=== PATIENT | male | born 1940 | race Caucasian/White ===

== ENCOUNTER 2018-04-13 00:23 | Outpatient (CLI) | payer MEDICARE, BC ==
[2018-04-13 10:38] LABS: #Eosinphils 0.2 thou/uL (0.0-0.7); #Lymphocytes 1.3 thou/uL (1.20-3.40); #Monocytes 0.5 thou/uL (0.11-0.59); %Basophils 0.5 % (0.0-1.0); %Eosinophils 2.5 % (0.0-10.0); %Lymphocytes 15.6 % (21.0-51.0); %Monocytes 6.5 % (0.0-10.0); %Neutrophils 74.9 % (42.0-75.0); Hemoglobin 13.5 g/dL (14.0-18.0); Mean Corpuscular HGB CONC 32.9 g/dL (32.0-36.0); Mean Corpuscular Hemoglobin 30.5 pg (27.0-31.0); Mean Corpuscular Volume 92.6 fL (78.0-98.0); Mean Platelet Volume 9.3 fL (7.4-10.4); Platelet Count 154 thou/uL (130-400); RBC Distribution Width 12.1 % (11.5-14.5); Red Blood Cell (RBC) Count 4.44 mill/uL (4.70-6.10); White Blood Cell (WBC) Count 8.1 thou/uL (4.8-10.8)
[2018-04-13 10:45] LABS: INR-International Normal Ratio 1.1; PTT 46.8 SEC (22.9-36.1); Prothrombin Time 14.5 SEC (12.0-14.7)
[2018-04-13 11:15] LABS: ALT (SGPT) 25 U/L (8-55); AST (SGOT) 24 U/L (5-34); Albumin 4.2 g/dL (3.4-4.8); Alkaline Phosphatase 314 U/L (40-150); Anion Gap 14 mmol/L (10-20); BUN (Urea Nitrogen) 49 mg/dL (8.4-25.7); Bilirubin, Total 0.4 mg/dL (0.2-1.2); Calc. Creatinine Clearance 0 mL/min (70-130); Calcium 9.6 mg/dL (7.8-10.44); Carbon Dioxide 19 mmol/L (23-31); Cardiac Risk 5.4 (Less than 4.5); Chloride 108 mmol/L (98-107); Cholesterol 147 mg/dl (< 200 Desired); Estimated GFR-MDRD 40; Globulin 3.1 g/dL (2.4-3.5); Glucose 133 mg/dL (83-110); HDL Cholesterol 27 mg/dL (>60 Neg Risk); LDL Cholesterol, Calculated 71 mg/dL; Potassium 5.6 mmol/L (3.5-5.1); Protein, Total 7.3 g/dL (5.8-8.1); Sodium 135 mmol/L (136-145); Triglycerides 247 mg/dL (Less than 150)
== END 2018-04-13 00:24 | disposition home or self-care (01) ==
LOC: LABBT 00:23
PROVIDERS: ATTEND Internal Medicine Cardiovascular Disease
DX: Z01.812 Encounter for preprocedural laboratory examination (principal); R94.39 Abnormal result of other cardiovascular function study
CPT/HCPCS: 80053; 80061; 85025; 85610; 85730

== ENCOUNTER 2018-04-23 05:40 | Day surgery (SDC) | payer MEDICARE, BC ==
[2018-04-13 10:47] VITALS: BMI 29.2
[2018-04-23] MEDS ORDERED: Fentanyl 100 MCG/2 ML VIAL ONE (07:03)
[2018-04-23] MEDS ORDERED: Midazolam HCl 2 mg/2 ml Vial ONE (07:04)
[2018-04-23] MEDS ORDERED: Lidocaine 1% (PF) 30 ML VIAL ONE (07:08)
[2018-04-23 08:03] LABS: ALT (SGPT) 21 U/L (8-55); AST (SGOT) 28 U/L (5-34); Albumin 4.1 g/dL (3.4-4.8); Alkaline Phosphatase 294 U/L (40-150); Anion Gap 17 mmol/L (10-20); BUN (Urea Nitrogen) 44 mg/dL (8.4-25.7); Bilirubin, Total 0.5 mg/dL (0.2-1.2); Calc. Creatinine Clearance 49 mL/min (70-130); Calcium 9.8 mg/dL (7.8-10.44); Carbon Dioxide 19 mmol/L (23-31); Chloride 108 mmol/L (98-107); Estimated GFR-MDRD 37; Globulin 3.2 g/dL (2.4-3.5); Glucose 128 mg/dL (83-110); Potassium 5.8 mmol/L (3.5-5.1); Protein, Total 7.3 g/dL (5.8-8.1); Sodium 138 mmol/L (136-145)
== END 2018-04-23 08:32 | disposition home or self-care (01) ==
LOC: CCL 05:40
PROVIDERS: ATTEND Internal Medicine Cardiovascular Disease
DX: R94.30 Abnormal result of cardiovascular function study, unspecified (principal); I35.0 Nonrheumatic aortic (valve) stenosis; E11.9 Type 2 diabetes mellitus without complications; I10 Essential (primary) hypertension; Z87.891 Personal history of nicotine dependence; Z79.4 Long term (current) use of insulin; Z79.899 Other long term (current) drug therapy; Z88.2 Allergy status to sulfonamides; Z88.8 Allergy status to other drugs, medicaments and biological substances; Z53.8 Procedure and treatment not carried out for other reasons
CPT/HCPCS: 80053; J1644; J2001; J2250; J3010

== ENCOUNTER 2018-05-12 17:30 | Observation (INO) | payer MEDICARE, BC ==
[2018-05-12 18:24] VITALS: BMI 27.3
[2018-05-12 22:16] LABS: #Basophils 0.1 thou/uL (0.0-0.2); #Eosinphils 0.3 thou/uL (0.0-0.7); #Lymphocytes 1.5 thou/uL (1.20-3.40); #Monocytes 0.8 thou/uL (0.11-0.59); %Basophils 1.2 % (0.0-1.0); %Eosinophils 3.6 % (0.0-10.0); %Lymphocytes 19.2 % (21.0-51.0); %Monocytes 10.2 % (0.0-10.0); %Neutrophils 65.9 % (42.0-75.0); Hemoglobin 12.2 g/dL (14.0-18.0); Mean Corpuscular HGB CONC 32.7 g/dL (32.0-36.0); Mean Corpuscular Hemoglobin 30.3 pg (27.0-31.0); Mean Corpuscular Volume 92.5 fL (78.0-98.0); Platelet Count 137 thou/uL (130-400); RBC Distribution Width 11.9 % (11.5-14.5); Red Blood Cell (RBC) Count 4.03 mill/uL (4.70-6.10); White Blood Cell (WBC) Count 7.6 thou/uL (4.8-10.8)
[2018-05-12] MEDS: Sodium Chloride 0.9% 1,000 ML IV SCH (22:17)
[2018-05-12 22:35] LABS: ALT (SGPT) 20 U/L (8-55); AST (SGOT) 20 U/L (5-34); Albumin 3.9 g/dL (3.4-4.8); Alkaline Phosphatase 258 U/L (40-150); Anion Gap 13 mmol/L (10-20); BUN (Urea Nitrogen) 50 mg/dL (8.4-25.7); Bilirubin, Total 0.3 mg/dL (0.2-1.2); Calc. Creatinine Clearance 47 mL/min (70-130); Calcium 9.5 mg/dL (7.8-10.44); Carbon Dioxide 25 mmol/L (23-31); Chloride 105 mmol/L (98-107); Estimated GFR-MDRD 38; Globulin 3.1 g/dL (2.4-3.5); Glucose 171 mg/dL (83-110); Potassium 4.8 mmol/L (3.5-5.1); Sodium 138 mmol/L (136-145)
[2018-05-12] MEDS ORDERED: traMADol HCl 50 MG TAB PO PRN (23:44)
[2018-05-13] MEDS: Atenolol 25 MG TAB PO SCH (05:34)
[2018-05-13 06:17] LABS: Anion Gap 13 mmol/L (10-20); BUN (Urea Nitrogen) 45 mg/dL (8.4-25.7); Calc. Creatinine Clearance 55 mL/min (70-130); Calcium 9.3 mg/dL (7.8-10.44); Carbon Dioxide 21 mmol/L (23-31); Chloride 109 mmol/L (98-107); Estimated GFR-MDRD 45; Glucose 162 mg/dL (83-110); Potassium 5.1 mmol/L (3.5-5.1); Sodium 138 mmol/L (136-145)
[2018-05-13] MEDS ORDERED: Midazolam HCl 2 mg/2 ml Vial ONE (07:35)
[2018-05-13] MEDS ORDERED: Fentanyl 100 MCG/2 ML VIAL ONE (07:35)
[2018-05-13] MEDS ORDERED: Sodium Chloride 0.9% 1,000 ML IV SCH (08:45)
[2018-05-13] MEDS: glipiZIDE 10 MG TAB PO SCH ×2 (11:06→17:31)
[2018-05-13] MEDS: Furosemide 20 MG TAB PO SCH (11:07)
[2018-05-13] MEDS: metFORMIN 500 MG TAB PO SCH ×2 (11:07→20:15)
[2018-05-13] MEDS: Gabapentin 300 MG CAP PO SCH ×2 (11:07→20:15)
[2018-05-13] MEDS: Lisinopril 10 MG TAB PO SCH ×2 (11:07→20:15)
[2018-05-13] MEDS: Insulin Glargine 45 UNITS in Pre-Filled Syringe 1 EACH SC SCH (12:24)
[2018-05-13] MEDS: Sodium Chloride 0.9% 1,000 ML IV SCH (17:31)
--- NOTE | 2018-05-13 20:55 | HP ---
HISTORY OF PRESENT ILLNESS: The patient was admitted for hydration before heart catheterization. Please see my note from the outpatient setting for further details. Mr. Jaimes has no new complaints. He is only here for hydration. He denies any more chest pain at that time. He does have increased lower extremity swelling, erythema, warmth, and pain on both legs, which is something new. For past medical, past surgical, medications, and allergies, please see my previous note. I appended that note to this note with no changes. ASSESSMENT AND PLAN: 1. Chest pain. We will plan heart catheterization. As has already been consented about 2 weeks ago for the same procedure, this had to be canceled due to elevated creatinine. 2. Possible cellulitis. If the heart catheterization is unremarkable, we will start him on antibiotics. 3. Further recommendations per results of coronary angio. Job ID: [id number]
[2018-05-13] MEDS ORDERED: Doxycycline 100 MG in Syringe 0 ML IVPB SCH (21:00)
[2018-05-13] MEDS ORDERED: Rosuvastatin 20 MG TAB PO SCH (21:00)
[2018-05-14] MEDS: Insulin Glargine 45 UNITS in Pre-Filled Syringe 1 EACH SC SCH (08:27)
[2018-05-14] MEDS: Furosemide 20 MG TAB PO SCH (08:28)
[2018-05-14] MEDS: Atenolol 25 MG TAB PO SCH (08:28)
[2018-05-14] MEDS: Gabapentin 300 MG CAP PO SCH (08:28)
[2018-05-14] MEDS: Lisinopril 10 MG TAB PO SCH (08:28)
[2018-05-14] MEDS: metFORMIN 500 MG TAB PO SCH (08:28)
[2018-05-14] MEDS: glipiZIDE 10 MG TAB PO SCH (08:28)
[2018-05-14] MEDS: Sodium Chloride 0.9% 1,000 ML IV SCH (08:37)
[2018-05-14 12:43] VITALS: BP 146/72; TEMP 97.5
[2018-05-14] MEDS ORDERED: Doxycycline 100 MG CAP PO SCH (21:00)
[2018-05-15] MEDS ORDERED: Aspirin 81 mg Enteric Coated Tablet PO SCH (09:00)
== END 2018-05-14 12:47 | disposition home or self-care (01) ==
LOC: T4-B 17:50
PROVIDERS: ADMIT Internal Medicine Cardiovascular Disease; ATTEND Internal Medicine Cardiovascular Disease
DX: R07.9 Chest pain, unspecified (principal); Z88.8 Allergy status to other drugs, medicaments and biological substances; Z88.2 Allergy status to sulfonamides; Z88.1 Allergy status to other antibiotic agents; Z79.4 Long term (current) use of insulin; Z79.82 Long term (current) use of aspirin; Z79.899 Other long term (current) drug therapy
CPT/HCPCS: 80048; 80053; 82962 ×3; 85025; 92928; 93458; 96361 ×3; 96365; 96376; C1769; G0378; G0379; 36415; 36416; J1644; J1825; J2250; J3010; J7050

== ENCOUNTER 2018-09-17 08:04 | Outpatient (CLI) | payer MEDICARE, BC ==
--- NOTE | 2018-09-17 11:15 | RAD ---
LUMBAR SPINE 4 VIEWS: HISTORY: M48.062, lumbar stenosis with neurogenic claudication, history of prior surgery with back and bilater al leg pain. COMPARISON: 11/01/2015. FINDINGS: Multilevel disk-osteophytosis and significant facet arthrosis. No significant malalignment or abnorm al translation. Marked sclerotic changes in the right hemipelvis, evidence for Paget's disease. Sta ble appearance from 11/01/2015. IMPRESSION: Significant spondylosis. Heterogeneous Sclerosis and thickening of trabecula in the right hemipelvis , evidence for Paget's disease. No significant new process. POS: [facility]
--- NOTE | 2018-09-17 11:18 | MRI ---
Lumbar spine MRI with and without contrast: 09/17/2018 COMPARISON: 11/01/2015 HISTORY: Back pain and leg pain, chronic in nature, with lumbar radiculopathy and history of prior ba ck surgery TECHNIQUE: Multiplanar multisequence MR imaging of the lumbar spine is provided with and without cont rast FINDINGS: There is heterogeneity of the bone marrow signal in the region of the sacrum, right greater than left , as well as within the imaged portion of the right iliac bone. These findings are stable when compared to prior lumbar spine MRI performed the 11/01/2015 and are likely on the basis of Paget's dis ease when correlated with prior lumbar spine radiographs as well. There is new heterogeneous abnormal bone marrow signal intensity within the posterior aspect of the L 5 vertebral body to the right of midline extending into the right pedicle. This involves a portion of the L5 vertebral body measuring 2.2 cm in craniocaudal dimension. There is heterogeneous hypointen se T1 and T2 signal. There may be minimal internal patchy enhancement. Dedicated CT examination is advised to further evaluate the L5 vertebral body. Perhaps this could represent Paget's disease withi n the L5 vertebral body but further assessment is suggested to exclude a more aggressive abnormality. On the basis of 5 lumbar type vertebral bodies, the conus medullaris terminates at the L1 level. T12-L1: Intervertebral disc height and signal intensity is within normal limits. No significant centr al canal or neural foraminal stenosis. Right anterior osteophyte formation noted. L1-2: Mild bilateral facet hypertrophy. Intervertebral disc height and signal intensity within normal limits with no significant central canal or neural foraminal stenosis. L2-3: Disc space narrowing and disc desiccation with mild disc bulge causing mild central canal steno sis. Mild bilateral facet hypertrophy with mild right neural foraminal stenosis. Findings are similar when compared to the prior examination. L3-4: Bilateral facet hypertrophy and hypertrophy of the ligamentum flavum, slightly progressed since the prior exam. Disc space narrowing, disc desiccation, and mild disc bulge, stable. Stable mild central canal stenosis and stable mild right neural foraminal stenosis. L4-5: Prominent facet hypertrophy noted bilaterally. There is disc space narrowing and disc desiccati on with mild disc bulge. Moderate stable central canal stenosis. Moderate right neural foraminal stenosis, slightly worsened when compared to the prior examination. L5-S1: Disc space narrowing and disc desiccation. Mild stable central canal stenosis. Prominent bilat eral facet hypertrophy with moderate left and mild right neural foraminal stenosis, not significantly changed. There is a lobulated T2 hyperintense lesion within the anterior right renal midpole measuring 3.4 cm, likely representing a cyst, unchanged when compared to the prior examination. The postcontrast imaging demonstrates no abnormal enhancement involving the contents of the thecal sa c. IMPRESSION: Multilevel degenerative change noted within the lumbar spine as detailed above. There are findings within the sacrum and the right iliac wing which are most consistent with Paget's disease. There is new abnormal signal intensity within the L5 vertebral body which may be related to Paget's disease as well. However, full assessment of the pelvis and lumbar spine via CT is recommended. Please see above discussion.
--- NOTE | 2018-09-17 11:19 | MRI ---
THORACIC SPINE MRI WITHOUT CONTRAST: Date: 09/17/2018 COMPARISON: None. HISTORY: Ataxia. TECHNIQUE: Multiplanar multisequence MR imaging of the thoracic spine provided without contrast. FINDINGS: The sagittal STIR imaging demonstrates no focal area of osseous marrow edema. Edematous degenerative changes are noted within bilateral facet joints at C7-T1. There is no anterolisthesis or retrolisthesis seen within the thoracic spine. There is no significant central canal stenosis within the thoracic spine and no focal area of abnormal signal intensity is noted within the thoracic cord. Scattered areas of anterior osteophyte formation noted within the thoracic spine. There is no signifi cant neural foraminal stenosis on either side at any level within the thoracic spine. IMPRESSION: No significant central canal or neural foraminal stenosis within the thoracic spine. Transcribed Date/Time: 09/17/2018 11:56 AM
--- NOTE | 2018-09-17 11:25 | MRI ---
CERVICAL SPINE MRI WITHOUT CONTRAST: Date: 09/17/2018 COMPARISON: None. HISTORY: Ataxia, pain. TECHNIQUE: Multiplanar multisequence MR imaging of the cervical spine provided without contrast. FINDINGS: Sagittal STIR imaging demonstrates edematous degenerative change centered at the facet of C7-T1, righ t greater than left. There is moderate degenerative change at the atlantoaxial interspace. There is no significant anterolisthesis or retrolisthesis within the cervical spine. C2-3: There is disc space narrowing and disc desiccation with bilateral facet and uncovertebral osteo phyte formation, especially on the left. No central canal stenosis. Moderate left neural foraminal stenosis. No significant right neural foraminal stenosis. C3-4: There is disc space narrowing and disc desiccation with mild disc bulge effacing the ventral th ecal sac and leading to severe central canal stenosis. There is prominent bilateral facet and uncovertebral osteophyte formation, left greater than right, with severe bilateral neural foraminal s tenosis. C4-5: Disc space narrowing, disc desiccation, and disc bulge present with a small central disc protru daniel. There is associated moderate central canal stenosis. Bilateral facet and uncovertebral osteophyte formation noted, right greater than left, with severe right and moderate left neural l[place] inal stenosis. C5-6: There is disc space narrowing with degenerative endplate change, anterior osteophyte formation, and posterior disc osteophyte complex. This causes a mild degree of central canal stenosis. Bilateral facet and uncovertebral osteophyte formation noted, right greater than left, with moderate bilateral neural foraminal stenosis, left greater than right. C6-7: There is disc space narrowing, disc desiccation, anterior osteophyte formation, and disc osteop hyte complex. Mild associated central canal stenosis. Bilateral facet and uncovertebral osteophyte formation noted with mild right and moderate left neural foraminal stenosis. C7-T1: Bilateral facet hypertrophy with moderate bilateral neural foraminal stenosis. No significant central canal stenosis. No focal area of abnormal signal intensity is identified within the cervical cord. IMPRESSION: Prominent multilevel cervical spine degenerative change as above. Transcribed Date/Time: 09/17/2018 12:03 PM
[2018-09-17] MEDS ORDERED: Gadobenate Dimeglumine 529 MG/1 ML (20ML VIAL) ONE (13:31)
== END 2018-09-17 08:05 | disposition home or self-care (01) ==
LOC: TBSIIMAG 08:04
PROVIDERS: ATTEND Physician Assistant Surgical
DX: M47.26 Other spondylosis with radiculopathy, lumbar region (principal); M48.062 Spinal stenosis, lumbar region with neurogenic claudication; M54.2 Cervicalgia; R27.0 Ataxia, unspecified; M47.812 Spondylosis without myelopathy or radiculopathy, cervical region
CPT/HCPCS: 72110; 72141; 72146; 72158

== ENCOUNTER 2018-12-20 12:22 | Observation (INO) | payer MEDICARE, BC ==
--- NOTE | 2018-12-20 14:18 | CT ---
CT BRAIN NONCONTRAST: DATE: 12/20/2018 HISTORY: 78-year-old male with altered mental status: Confusion FINDINGS: There is no evidence of acute intra-axial or extra-axial hemorrhage. There is no midline shift or any other mass effect. There is no extra-axial fluid collection. There is no evidence of obstructive hydrocephalus. Calvarium is intact. IMPRESSION: No acute intracranial findings.
[2018-12-20] MEDS ORDERED: Ondansetron PF 4 MG/2 ML Vial IVP PRN (16:56)
[2018-12-20] MEDS ORDERED: Ondansetron ODT 4 MG TAB SL PRN (16:56)
[2018-12-20] MEDS ORDERED: Sodium Chloride 0.9% 1,000 ML IV SCH (16:56)
[2018-12-20 16:58] VITALS: BMI 26.4
[2018-12-20 18:22] LABS: Troponin I Less than 0.010 ng/mL (< 0.028)
[2018-12-20 20:47] LABS: Troponin I 0.021 ng/mL (< 0.028)
--- NOTE | 2018-12-21 02:57 | CON ---
DATE OF CONSULTATION: 12/20/2018 CONSULTING PHYSICIAN: Dr. Johnson. REASON FOR CONSULTATION: Acute kidney injury. REASON FOR ADMISSION: Confusion. HISTORY OF PRESENT ILLNESS: This is a 78-year-old male with history of chronic back pain, cellulitis, type 2 diabetes, hypertension, came to the hospital with altered mentation and is feeling better. The patient complains of left-sided chest pain. No nausea or vomiting. He said he has been eating and drinking very well. PAST MEDICAL HISTORY: Positive for type 2 diabetes, hypertension, chronic back pain. PAST SURGICAL HISTORY: Hand surgery, back surgery, cholecystectomy, and tonsillectomy. HOME MEDICATIONS: 1. Lisinopril. 2. Atenolol. 3. Furosemide. 4. Crestor. 5. Gabapentin. 6. Levemir. 7. Metformin. ALLERGIES: TO TYLENOL, CITRIC ACID, SODIUM BICARB, SULFA. SOCIAL HISTORY: No smoking, alcohol, or drugs. FAMILY HISTORY: No history of kidney disease. REVIEW OF SYSTEMS: CONSTITUTIONAL: Negative for weight loss or gain, sense of well-being, ability to conduct usual activities, exercise tolerance. SKIN/BREAST: Negative for rash, itching, changes in hair growth or loss, nail changes, breast lumps, tenderness, swelling, nipple discharge. EYES: Negative for vision, double vision, tearing, blind spots, pain. ENT/MOUTH: Negative for headaches, vertigo, lightheadedness, injury. Vision, double vision, tearing, blind spots, pain, nose bleeding, colds, obstruction, discharge, dental difficulties, gingival bleeding, dentures, neck stiffness, pain, tenderness, masses in thyroid or other areas CARDIOVASCULAR: Negative for precordial pain, substernal distress, palpitations, syncope, dyspnea on exertion, orthopnea, nocturnal paroxysmal dyspnea, edema, cyanosis, hypertension, heart murmurs, varicosities, phlebitis, claudication. RESPIRATORY: Negative for pain, shortness of breath, wheezing, stridor, cough, hemoptysis, fever or night sweats GASTROINTESTINAL: Negative for poor appetite, dysphagia, indigestion, abdominal pain, heartburn, eructation, nausea, vomiting, hematemesis, jaundice, constipation, or diarrhea, abnormal stools (monserrat-colored, tarry, bloody, greasy, foul smelling), flatulence, hemorrhoids, recent changes in bowel habits. GENITOURINARY: Negative for urgency, frequency, dysuria, nocturia, hematuria, polyuria, oliguria, unusual (or change in) color of urine, stones, hesitancy, change in size of stream, dribbling, acute retention or incontinence, libido, potency. MUSCULOSKELETAL: Negative for pain, swelling, redness or heat of muscles or joints, limitation of motion, muscular weakness, atrophy, cramps. NEUROLOGIC/PSYCHIATRIC: Negative for convulsions, paralyses, tremor, incoordination, paraesthesias, difficulties with memory of speech, sensory or motor disturbances, or muscular coordination (ataxia, tremor), emotional problems, anxiety, depression, previous psychiatric care, unusual perceptions, hallucinations. ALLERGY/IMMUNOLOGIC: Negative for skin rash, anemia, bleeding tendency, polydipsia, polyuria, intolerance to heat or cold. PHYSICAL EXAMINATION: GENERAL: This is a well-built male, in no apparent distress. VITAL SIGNS: Temperature 98.7, pulse 63, respiratory rate 11, blood pressure 152/77. HEENT: Atraumatic, normocephalic. Oral mucosa moist. NECK: Supple. CV: S1, S2 heard. Rate and rhythm regular. RESPIRATORY: Clear to auscultation. GASTROINTESTINAL: Abdomen is soft. MUSCULOSKELETAL: 1+ edema DERMATOLOGIC: No skin rash. NEUROLOGIC: Alert and awake and oriented X3. No focal neurologic deficits. Moving all the extremities. PSYCHIATRIC: Mood and affect normal. LABORATORY DATA: Hemoglobin 14.3, potassium 5.6, BUN is 42, and creatinine is 2.5. Baseline creatinine is around 1.6. ASSESSMENT AND PLAN: 1. Acute kidney injury on chronic kidney disease, stage 3 with most likely volume depletion. Continue hydration. 2. Hyperkalemia. Limit potassium intake. 3. Acidosis. 4. Edema, controlled. 5. Hypertension, we will monitor. 6. Hold lisinopril and Lasix if tolerated. Continue hydration and avoid nephrotoxins. We will continue to follow. Thank you for the consult. Job ID: [id number]
[2018-12-21 09:45] LABS: Anion Gap 16 mmol/L (10-20); BUN (Urea Nitrogen) 12 mg/dL (8.4-25.7); Calc. Creatinine Clearance 43 mL/min (70-130); Calcium 9.6 mg/dL (7.8-10.44); Carbon Dioxide 21 mmol/L (23-31); Chloride 105 mmol/L (98-107); Estimated GFR-MDRD 36; Glucose 162 mg/dL (83-110); Potassium 5.2 mmol/L (3.5-5.1); Sodium 137 mmol/L (136-145)
--- NOTE | 2018-12-21 10:20 | PRG ---
DATE OF SERVICE: 12/21/2018 SUBJECTIVE: A 78-year-old gentleman being seen for acute kidney injury. The patient denied nausea, vomiting, or chest pain. OBJECTIVE: See above. The patient is awake and alert, in no acute distress. VITAL SIGNS: Pulse 73, breathing 16, blood pressure 138/63. GENERAL APPEARANCE AND MENTAL STATUS: Fair. HEAD/NECK: Normocephalic. Atraumatic. EYES: EOMI. No deformity. EARS: Clear. No ulcers. NOSE: Intact. No lesions. MOUTH: Clear. No discharge. THROAT: Clear. No exudate. LUNGS: Clear. No crackles. CARDIAC: S1, S2. No rub. ABDOMEN: Benign. Bowel sounds positive. GENITALIA/RECTUM: Reese absent. BACK/EXTREMITIES: Edema 0+. NEUROLOGICAL: Alert and motor intact. SKIN: LYMPHATICS: LABORATORY DATA: Labs show potassium 5.2, creatinine 1.8. ASSESSMENT AND PLAN: 1. Acute kidney injury with chronic kidney disease, improved. 2. Hypertension, stable. 3. Anemia, stable. Medication based on GFR appropriate. 4. Hyperkalemia. Would recommend low-potassium diet and repeat potassium in a few hours. Job ID: [id number]
--- NOTE | 2018-12-21 10:20 | NM ---
Exam: Nuclear medicine ventilation/perfusion scan HISTORY: Evaluate for pulmonary artery aneurysm. Chest pain. TECHNIQUE: Patient was measured 12.90 mCi of xenon gas for ventilation imaging and 6.30 mm of technet ium 99m MAA for perfusion imaging FINDINGS: Ventilation imaging: Appropriate and essentially symmetric uptake of the radiotracer. No significant radiotracer retention Diffusion imaging: Homogeneous distribution of the radiotracer. Filling defects: There are no ventilation/perfusion mismatches IMPRESSION: Normal exam.
[2018-12-21 12:58] LABS: Anion Gap 18 mmol/L (10-20); BUN (Urea Nitrogen) 15 mg/dL (8.4-25.7); Calc. Creatinine Clearance 44 mL/min (70-130); Calcium 9.4 mg/dL (7.8-10.44); Carbon Dioxide 17 mmol/L (23-31); Chloride 107 mmol/L (98-107); Estimated GFR-MDRD 37; Glucose 160 mg/dL (83-110); Potassium 5.7 mmol/L (3.5-5.1); Sodium 136 mmol/L (136-145)
[2018-12-21] MEDS ORDERED: Bisacodyl 5 MG TAB PO PRN (13:35)
[2018-12-21] MEDS ORDERED: Insulin Regular 300 UNITS/3 ML VIAL IVP SCH (13:45)
[2018-12-21] MEDS ORDERED: Dextrose 50% Abboject 50 ML SYRINGE SLOW IVP SCH (13:45)
[2018-12-21] MEDS ORDERED: Albuterol Sulfate 2.5 mg/3 ml Neb NEB SCH (13:45)
[2018-12-21] MEDS ORDERED: Dextrose 5% in Water 1,000 ML IV PRN (15:31)
[2018-12-21] MEDS ORDERED: Dextrose 50% Abboject 50 ML SYRINGE SLOW IVP PRN (15:31)
--- NOTE | 2018-12-21 16:01 | HP ---
PRIMARY CARE PROVIDER: Dr. Iain Carrington. CHIEF COMPLAINT: Chest pain. HISTORY OF PRESENT ILLNESS: Mr. Jaimes is a pleasant 78-year-old gentleman, who was seen at [facility] on December 21, 2018. He was transferred here after initially presenting to the emergency room at [place]. He reports that he started having left-sided chest pain, 6/10 at its worst, pressure-like, nonradiating, no aggravating or relieving symptoms, not accompanied by shortness of breath, lightheadedness, or nausea. He went to the emergency room at [place]. He was found to have an elevated D-dimer and was sent to our facility for a V/Q scan. REVIEW OF SYSTEMS: All systems were reviewed and found to be negative except for the pertinent positives mentioned above. PAST MEDICAL HISTORY: Chronic back pain, diabetes mellitus, hypertension, cellulitis, and dyslipidemia. The patient had cardiac catheterization in May 2018, which showed normal LVEDP, aortic valve area of 0.98 sq cm, likely [id number] aortic stenosis, and no significant CAD. Medical therapy was advised. PAST SURGICAL HISTORY: Hand surgery, back surgery, cholecystectomy, and tonsillectomy. SOCIAL HISTORY: The patient has a remote history of tobacco use. He denies alcohol use or recreational drug use. CODE STATUS: The patient is full code. ALLERGIES: ACETAMINOPHEN, CITRIC ACID, COTRIM, SODIUM BICARBONATE, AND SULFA. CURRENT MEDICATIONS: 1. Lisinopril 10 mg daily. 2. Atenolol 12.5 mg daily. 3. Lasix 40 mg daily. 4. Gabapentin 300 mg 2 times a day. 5. Levemir 50 units in the evening. 6. Metformin 500 mg daily. 7. Crestor 20 mg daily. 8. Aspirin 81 mg daily. PHYSICAL EXAMINATION: GENERAL: On examination, Mr. Jaimes is awake and alert, not in acute distress. VITAL SIGNS: Blood pressure is 167/74, pulse 63, respiratory rate 20, and oxygen saturation 96% on room air. He is afebrile. HEENT: Eyes; no scleral icterus, no conjunctival pallor. ENT; moist mucosal membranes. No oropharyngeal erythema or exudates. NECK: Supple, nontender, trachea is midline. RESPIRATORY: Accessory muscles of breathing are not active. Chest wall movements are symmetric bilaterally. Lungs are clear to auscultation without wheeze, rhonchi, or crepitations. CARDIOVASCULAR: S1 and S2 are heard, regular. Peripheral pulses palpable. No carotid bruit. ABDOMEN: Soft, nontender, bowel sounds heard. NEUROLOGIC: Cranial nerves 2 through 12 are intact. MUSCULOSKELETAL: Power is 5/5 in all 4 extremities. SKIN: No skin wounds. LYMPHATIC: No cervical lymphadenopathy. PSYCHIATRIC: Normal mood, normal affect. The patient is oriented to person, place, month, and year. DIAGNOSTIC STUDIES: Mr. Jaimes's labs and investigations were reviewed. I reviewed his electrocardiogram, which shows normal sinus rhythm. No ST changes to suggest an acute coronary syndrome. I also reviewed his chest x-ray, which does not show any pulmonary infiltrates. Noncontrast CT scan of the brain did not show any acute intracranial abnormality. He has normal sodium, elevated potassium of 5.2, elevated creatinine of 1.83. Last known creatinine 2.51 on December 20 and 1.66 on August 20 of this year. Elevated D-dimer of 3.94. Normal white count, normal hemoglobin, and normal platelet count. ASSESSMENT AND PLAN: Mr. Jaimes is a pleasant 78-year-old gentleman, who was seen at [facility] on December 21, 2018. His problem list includes: 1. Chest pain: Mr. Jaimes is being admitted to the hospital on observation status for chest pain. This does not appear to be secondary to coronary artery disease, since he had normal coronaries on cardiac catheterization earlier this year. However, this could be a manifestation of aortic stenosis. The patient will be admitted to the hospital. Cardiology Service will be consulted for opinion and help with management. V/Q scan is pending because of elevated D-dimer. 2. Acute on chronic stage 3 renal failure: Nephrology Service has been consulted for opinion and help with management. Metformin and lisinopril will be on hold. 3. Hyperkalemia: We will administer Kayexalate, insulin, followed by dextrose and beta agonist nebulizers. We will recheck potassium. 4. Diabetes mellitus, type 2: We will start patient on Accu-Cheks and insulin sliding scale. 5. Hypertension: We will monitor vital signs and titrate antihypertensives as needed. 6. Dyslipidemia: We will continue statin. Many thanks for allowing me to participate in your patient's care. Please feel free to contact me with any questions or concerns. LEVEL OF RISK: High. LEVEL OF COMPLEXITY: High. Job ID: [id number]
[2018-12-21 16:34] LABS: Potassium 4.4 mmol/L (3.5-5.1)
[2018-12-21] MEDS: HumaLOG 300 UNITS/3 ML VIAL SC PRN (17:53)
--- NOTE | 2018-12-21 18:45 | CON ---
DATE OF CONSULTATION: HISTORY OF PRESENT ILLNESS: The patient is a 78-year-old gentleman who presents with chest discomfort. The patient has a history of aortic stenosis. He underwent a cardiac catheterization in May of this year, was found to have moderate aortic stenosis with only mild coronary artery disease. The patient was in his usual state of health when he developed left-sided chest discomfort. This was a persistent discomfort. He woke up the next morning with a continued pain and went to the local emergency room. He received Lovenox and aspirin. His chest pain subsequently resolved. He denies having any present chest discomfort. PAST MEDICAL HISTORY: 1. Diabetes mellitus. 2. Hypertension. 3. Dyslipidemia. 4. Chronic back pain. PAST SURGICAL HISTORY: Hand surgery, back surgery, cholecystectomy, and tonsillectomy. SOCIAL HISTORY: Nonsmoker. ALLERGIES: ACETAMINOPHEN, CITRIC ACID, SODIUM BICARBONATE, AND SULFA. MEDICATIONS: 1. Lisinopril 10 daily. 2. Atenolol 25 half a tablet daily. 3. Lasix 40 daily. 4. Crestor 20 daily. 5. Gabapentin 300 daily. 6. Metformin 500 b.i.d. 7. Levemir. PHYSICAL EXAMINATION: GENERAL AND VITAL SIGNS: This is a well-developed gentleman, in no acute distress with a blood pressure of 149/67. NECK: Showed no jugular venous distention. LUNGS: Clear to auscultation. HEART: Regular rate and rhythm. Normal S1, S2 with a 3/6 systolic ejection murmur. ABDOMEN: Nondistended. EXTREMITIES: Showed no edema. VASCULAR: Radial pulses are 2+. LABORATORY DATA: Sodium 136, potassium 5.7, chloride 107, bicarb 17, BUN 15, creatinine 1.78, and glucose is 160. His white blood count was 7.5, hemoglobin 14.3, hematocrit 44.7, and platelets are 156. EKG revealed him to have normal sinus rhythm with left axis deviation and incomplete right bundle-branch block. IMPRESSION: 1. Chest pain with some features suggestive of angina. 2. Moderate aortic stenosis. 3. Hypertension. 4. Diabetes mellitus. 5. Dyslipidemia. 6. Renal insufficiency. This gentleman presents with chest pain. He underwent a recent catheterization which revealed no significant coronary artery disease. At this time, we would continue to observe this patient. He is markedly hyperkalemic. Therefore, we would discontinue his lisinopril. Further recommendations will follow. Job ID: [id number] MTDWilliam
[2018-12-21] MEDS ORDERED: Insulin Glargine 50 UNITS in Pre-Filled Syringe SC SCH (21:00)
[2018-12-21] MEDS ORDERED: Non-Formulary Item 1 EACH (Levemir Flexpen [Levemir Flexpen] 50 UNIT) SQ SCH (21:00)
[2018-12-21] MEDS: Gabapentin 300 MG CAP PO SCH (21:17)
[2018-12-22 05:25] LABS: #Basophils 0.1 thou/uL (0.0-0.2); #Eosinphils 0.2 thou/uL (0.0-0.7); #Lymphocytes 1.2 thou/uL (1.20-3.40); #Monocytes 0.7 thou/uL (0.11-0.59); #Neutrophils 5.1 thou/uL (1.40-6.50); %Basophils 0.7 % (0.0-1.0); %Lymphocytes 16.4 % (21.0-51.0); %Monocytes 9.8 % (0.0-10.0); %Neutrophils 70.1 % (42.0-75.0); Hemoglobin 13.4 g/dL (14.0-18.0); Mean Corpuscular Hemoglobin 30.9 pg (27.0-31.0); Mean Corpuscular Volume 90.9 fL (78.0-98.0); Mean Platelet Volume 9.5 fL (7.4-10.4); Platelet Count 147 thou/uL (130-400); RBC Distribution Width 11.8 % (11.5-14.5); Red Blood Cell (RBC) Count 4.32 mill/uL (4.70-6.10); White Blood Cell (WBC) Count 7.3 thou/uL (4.8-10.8)
[2018-12-22 05:52] LABS: Anion Gap 12 mmol/L (10-20); BUN (Urea Nitrogen) 35 mg/dL (8.4-25.7); Calc. Creatinine Clearance 45 mL/min (70-130); Calcium 8.9 mg/dL (7.8-10.44); Carbon Dioxide 24 mmol/L (23-31); Chloride 105 mmol/L (98-107); Estimated GFR-MDRD 39; Glucose 133 mg/dL (83-110); Potassium 4.3 mmol/L (3.5-5.1); Sodium 137 mmol/L (136-145)
[2018-12-22] MEDS: Gabapentin 300 MG CAP PO SCH (08:43)
[2018-12-22] MEDS ORDERED: Rosuvastatin 20 MG TAB PO SCH (09:00)
[2018-12-22] MEDS ORDERED: Aspirin 81 mg Enteric Coated Tablet PO SCH (09:00)
[2018-12-22] MEDS ORDERED: Atenolol 25 MG TAB PO SCH (09:00)
[2018-12-22] MEDS ORDERED: Furosemide 40 MG TAB PO SCH (09:00)
--- NOTE | 2018-12-22 10:16 | PRG ---
DATE OF SERVICE: 12/22/2018 SUBJECTIVE: This is a 78-year-old gentleman being seen for acute kidney injury. The patient denies any nausea, vomiting, or chest pain. OBJECTIVE: CONSTITUTIONAL: The patient is awake and alert. VITAL SIGNS: Pulse 78, breathing 16, and blood pressure 141/65. GENERAL APPEARANCE AND MENTAL STATUS: Fair. HEAD/NECK: Normocephalic. Atraumatic. EYES: EOMI. No deformity. EARS: Clear. No ulcers. NOSE: Intact. No lesions. MOUTH: Clear. No discharge. THROAT: Clear. No exudate. LUNGS: Clear. No crackles. CARDIAC: S1, S2. No rub. ABDOMEN: Benign. Bowel sounds positive. GENITALIA/RECTUM: Reese absent. BACK/EXTREMITIES: Edema 0+. NEUROLOGICAL: Alert and motor intact. SKIN: LYMPHATICS: LABORATORY DATA: Labs reviewed. IMPRESSION AND PLAN: 1. Acute kidney injury with chronic kidney disease, improved. 2. Hypertension, stable. 3. Anemia, stable. 4. Chronic kidney disease stage 3, stable. 5. Acute tubular necrosis, stable. 6. Hyperkalemia, improved. No indication for dialysis at this time. Job ID: [id number]
--- NOTE | 2018-12-22 11:28 | ULT ---
Exam: Bilateral renal ultrasound HISTORY: Acute kidney insufficiency COMPARISON: None Correlation: Lumbar spine MRI 09/17/2018 FINDINGS: Right kidney: There is a elongated anechoic focus in the right kidney measuring 3.1 x 1.0 x 3.0 cm. P ossible cystic lesion is raised. Correlation made with MRI 09/17/2018 does demonstrate a T2 hyperintense lesion in the right kidney. No hydronephrosis. Right kidney measurements: 9.6 x 4.8 x 5.7 cm. Left kidney: Exophytic hypoechoic focus in the left renal cortex measures 1.8 x 1.9 x 2.3 cm. Additio debbie, there appears to be soft tissue prominence in the mid pole left kidney, incompletely evaluated. No hydronephrosis. Left kidney measurements 5.6 x 10.9 x 5.8 cm. Urinary bladder: Normal mucosa. Bilateral ureteral jets are identified IMPRESSION: 1. No hydronephrosis 2. Possible cystic lesion the right kidney. 3. Possible exophytic complex cystic lesion and solid mass involving the left kidney. 4. Better interrogation with a renal mass protocol CT or abdomen MRI is recommended. CODE T
[2018-12-22] MEDS: HumaLOG 300 UNITS/3 ML VIAL SC PRN (13:21)
[2018-12-22 15:30] VITALS: BP 162/70; TEMP 97.6
--- NOTE | 2018-12-22 16:54 | DIS ---
DATE OF ADMISSION: 12/20/2018 DATE OF DISCHARGE: 12/22/2018 PRIMARY CARE PROVIDER: Dr. Iain Carrington. DISCHARGE DIAGNOSES: 1. Chest pain. 2. Chest pain most likely secondary to musculoskeletal etiology. 3. Acute on chronic stage 3 renal failure. CONDITION OF PATIENT ON THE DAY OF DISCHARGE: Stable. I assessed Mr. Jaimes on the day of discharge. He denies any chest pain or shortness of breath. Vital signs are stable. S1 and S2 are heard, regular. Lungs are clear to auscultation bilaterally. DISCHARGE MEDICATIONS: 1. Atenolol 12.5 mg daily. 2. Lasix 40 mg daily. 3. Gabapentin 300 mg two times a day. 4. Levemir 50 units in the evening. 5. Metformin 500 mg two times a day. 6. Crestor 20 mg daily. 7. Norvasc 5 mg daily. 8. Aspirin 81 mg daily. 9. Lisinopril has been discontinued. CONSULTATIONS DURING THIS HOSPITALIZATION: 1. Cardiology, Dr. Nick. 2. Nephrology, Dr. Hoyos. POST-ACUTE CARE FOLLOWUP: The patient is advised to follow up with primary care provider in 3 to 5 days and with steel die printer, Dr. Womack in 1 month time. HOSPITAL COURSE: Mr. Jaimes is a pleasant 78-year-old gentleman, who was admitted to [facility] on December 20, 2018, for chest pain and acute on chronic renal failure. He had an elevated D-dimer. V/Q scan was normal. He was seen by Cardiology Service. He did not have any chest pain after admission. His renal function also improved. His lisinopril was discontinued and he has been started on amlodipine. There were concerns about his cognition. The patient has been advised not to drive. The patient's family will seek medical help for cognitive impairment. Renal ultrasound done during this hospitalization did not show any hydronephrosis. He had a possible cystic lesion on the right kidney and possible exophytic complex cystic lesion and solid mass involving the left kidney. He is advised to have further workup through primary care provider's office with renal mass protocol CT or abdomen MRI. I have advised him to follow up with primary care provider for the same. Many thanks for allowing me to participate in your patient's care. Please feel free to contact me with any questions or concerns. DISCHARGE DESTINATION: Home. Job ID: [id number]
--- NOTE | 2018-12-22 18:20 | PDOC.CPN ---
- Subjective Date: 12/22/18 Time: 18:19 Interval history: Doing well, No chest pain, No new issues. - Review of Systems General: denies: fever/chills, weight/appetite/sleep changes, night sweats, fatigue Respiratory: denies: cough, congestion, shortness of breath, exercise intolerance Cardiovascular: denies: chest pain, palpitation, edema, paroxysmal nocturnal dyspnea, orthopnea Gastrointestinal: denies: nausea, vomiting, diarrhea, constipation, abd pain, GI bleeding Musculoskeletal: denies: pain, tenderness, stiffness, swelling, arthritis/ arthralgias Neurological: denies: numbness, syncope, seizure, weakness - Objective Allergies/Adverse Reactions: Allergies Allergy/AdvReac Type Severity Reaction Status Date / Time acetaminophen Allergy Intermediate Swollen Verified 05/12/18 18:16 [From Bromo-Turin] Lips citric acid Allergy Intermediate Swollen Verified 05/12/18 18:16 [From Bromo-Turin] Lips sodium bicarbonate Allergy Intermediate Swollen Verified 05/12/18 18:16 [From Bromo-Turin] Lips Sulfa (Sulfonamide Allergy Verified 05/12/18 18:16 Antibiotics) Cotrim AdvReac Uncoded 05/12/18 18:16 Vital Signs & Weight: Vital Signs Temp Pulse Resp BP BP Pulse Ox 12/22/18 15:05 97.6 F 60 16 162/70 H 97 12/22/18 13:20 146/67 H 12/22/18 12:45 187/75 H 12/22/18 11:38 97.5 F L 62 14 171/77 H 94 L 12/22/18 08:41 78 141/65 H 12/22/18 07:22 97.8 F 72 18 141/65 H 96 12/22/18 06:37 95 Weight 193 lb 9.6 oz - Physical Exam General: alert & oriented x3, no apparent distress HEENT: mucus membranes moist, normocephaly Neck: supple neck, midline trachea Cardiac: regular rate and rhythm, no murmur Lungs: clear to auscultation, no wheeze, rales, rhonchi Neuro: no lateralizing findings Abdomen: active bowel sounds, soft, non-tender Extremities: no cyanosis, no clubbing, no edema Skin: clear Musculoskeletal: normal range of motion - Labs Result Diagrams: 12/22/18 04:40 12/22/18 04:40 Troponin/CKMB Troponin I 0.021 ng/mL (< 0.028) 12/20/18 20:16 - Telemetry Sinus rhythms and dysrhythmias: sinus rhythm - Assessment/Plan Assessment/Plan: 1. Chest pain 2. Mild to moderate CAD 3. Moderate . PLAN: - May discharge home from cardiac perspective. - Follow up in the office in 4-6 weeks. - Stop Lisinopril and start amlodipine 5 mg daily.
[2018-12-23] MEDS ORDERED: Amlodipine 5 MG TAB PO SCH (09:00)
== END 2018-12-22 17:43 | disposition home or self-care (01) ==
LOC: ERS 12:22 → 2SW 16:55
PROVIDERS: ADMIT Internal Medicine Nephrology; ATTEND Internal Medicine Nephrology
DX: N17.0 Acute kidney failure with tubular necrosis (principal); R07.9 Chest pain, unspecified; E87.5 Hyperkalemia; E87.2 Acidosis; I35.0 Nonrheumatic aortic (valve) stenosis; I25.10 Atherosclerotic heart disease of native coronary artery without angina pectoris; I12.9 Hypertensive chronic kidney disease with stage 1 through stage 4 chronic kidney disease, or unspecified chronic kidney disease; E11.22 Type 2 diabetes mellitus with diabetic chronic kidney disease; N18.3 Chronic kidney disease, stage 3 (moderate); E78.5 Hyperlipidemia, unspecified; D64.9 Anemia, unspecified; R60.9 Edema, unspecified; Z79.4 Long term (current) use of insulin; Z79.82 Long term (current) use of aspirin; Z79.899 Other long term (current) drug therapy; Z87.891 Personal history of nicotine dependence; Z88.1 Allergy status to other antibiotic agents; Z88.2 Allergy status to sulfonamides; Z88.6 Allergy status to analgesic agent; Z88.8 Allergy status to other drugs, medicaments and biological substances
CPT/HCPCS: 70450; 76770; 78582; 80048 ×3; 82140; 82962 ×2; 84132; 84484; 85025; 93005; 94640; 96361; 96374; 97139; 99285; A9540; A9558; G0378 ×4; 36415; 36416; 96360; J1815; J7611

== ENCOUNTER 2019-05-17 22:24 | Emergency (ER) | payer MEDICARE, BC ==
--- NOTE | 2019-05-17 23:06 | RAD ---
Portable chest: HISTORY: Mental status change COMPARISON: none FINDINGS: Lung lepe are clear. Heart and mediastinum appear unremarkable. Vascularity is normal. Visualized osseous structures unremarkable. IMPRESSION: No acute finding
[2019-05-17 23:19] LABS: #Basophils 0.1 thou/uL (0.0-0.2); #Eosinphils 0.2 thou/uL (0.0-0.7); #Lymphocytes 1.6 thou/uL (1.20-3.40); #Monocytes 0.7 thou/uL (0.11-0.59); %Basophils 0.9 % (0.0-1.0); %Eosinophils 2.6 % (0.0-10.0); %Lymphocytes 16.1 % (21.0-51.0); %Monocytes 7.4 % (0.0-10.0); Hemoglobin 14.1 g/dL (14.0-18.0); Mean Corpuscular HGB CONC 34.4 g/dL (32.0-36.0); Mean Corpuscular Hemoglobin 31.4 pg (27.0-31.0); Mean Corpuscular Volume 91.2 fL (78.0-98.0); Mean Platelet Volume 9.5 fL (7.4-10.4); Platelet Count 163 thou/uL (130-400); RBC Distribution Width 11.8 % (11.5-14.5); White Blood Cell (WBC) Count 9.6 thou/uL (4.8-10.8)
--- NOTE | 2019-05-17 23:29 | CT ---
CT head without contrast: Multiple axial tomograms obtained through the head without IV enhancement. INDICATIONS: Mental status change COMPARISON: None FINDINGS: Ventricles have normal size and position. No evidence of intracranial mass, hemorrhage, edema, or infarct. Visualized sinuses and mastoids appear clear. Bony calvarium appears unremarkable. IMPRESSION: No acute finding
[2019-05-17 23:39] LABS: Acetaminophen Less than 6.0 mcg/mL (10.0-30.0); Alcohol Less than 10 mg/dL (Less than 10); Salicylate Less than 8.0 mg/dL (15.0-30.0)
[2019-05-17 23:42] LABS: ALT (SGPT) 14 U/L (8-55); AST (SGOT) 19 U/L (5-34); Albumin 3.7 g/dL (3.4-4.8); Alkaline Phosphatase 537 U/L (40-110); Anion Gap 13 mmol/L (10-20); BUN (Urea Nitrogen) 33 mg/dL (8.4-25.7); Bilirubin, Total 0.3 mg/dL (0.2-1.2); Calc. Creatinine Clearance 0 mL/min (70-130); Calcium 8.9 mg/dL (7.8-10.44); Carbon Dioxide 27 mmol/L (23-31); Chloride 101 mmol/L (98-107); Estimated GFR-MDRD 31; Glucose 220 mg/dL (83-110); Potassium 5.6 mmol/L (3.5-5.1); Protein, Total 6.7 g/dL (5.8-8.1); Sodium 135 mmol/L (136-145)
[2019-05-18 00:27] LABS: Bilirubin Negative (Negative); Blood, Urine 1+ (Negative); Clarity Clear (Clear); Glucose, Urine (Dipstick) 300 mg/dL (Negative); Leukocyte Negative Leu/uL (Negative); Nitrite Negative (Negative); Protein, Urine (Dipstick) 600 mg/dL (Neg-Trace); RBC/HPF 0-3 HPF (0-3); Squamous Epithelial None Seen HPF (0-3); Urobilinogen Normal mg/dL (Less than 2); WBC/HPF 0-3 HPF (0-3)
[2019-05-18 00:28] LABS: Bacteria/HPF 1+ HPF (None Seen)
[2019-05-18 00:42] LABS: Amphetamine Not Detected (NotDetected); Barbiturates Screen Not Detected (NotDetected); Benzodiazepine Screen Not Detected (NotDetected); Cocaine Metabolite Screen Not Detected (NotDetected); Medtox Control Line Valid? VALID (VALID); Medtox Reader # READER 4; Methadone Not Detected (NotDetected); Methamphetamine Not Detected (NotDetected); Opiate Screen Not Detected (NotDetected); Oxycodone Screen Not Detected (NotDetected); Phencyclidine (PCP) Not Detected (NotDetected); THC/Cannabinoid Screen Not Detected (NotDetected); Tricyclic Screen Not Detected (NotDetected)
== END 2019-05-18 01:23 | disposition home or self-care (01) ==
LOC: ERS 22:24
DX: G45.9 Transient cerebral ischemic attack, unspecified (principal); I10 Essential (primary) hypertension; E11.9 Type 2 diabetes mellitus without complications; Z79.899 Other long term (current) drug therapy; Z79.84 Long term (current) use of oral hypoglycemic drugs
CPT/HCPCS: 70450; 71045; 80053; 80306; 80307; 81003; 81015; 84484; 85025; 93005; 96360

== ENCOUNTER 2019-09-14 10:10 | Outpatient (CLI) | payer MEDICARE, BC ==
--- NOTE | 2019-09-14 11:18 | ULT ---
Exam: Bilateral renal ultrasound HISTORY: Follow-up renal cyst COMPARISON: 12/22/2018 FINDINGS: Right kidney: Redemonstration of a elongated anechoic focus involving the pelvis and lower pole chanel x, measuring 1.1 x 3.9 x 1.6 cm (previous the measuring 3.0 x 1.0 x 3.1 cm). Cyst is favored. No hydronephrosis. Right kidney measurements: 9.6 x 4.8 x 5.7 cm. Left kidney: Redemonstration of exophytic cyst emanating from the upper pole left kidney, measuring 2 .0 x 2.0 x 2.2 cm. No hydronephrosis. Left kidney measurements 10.9 x 5.6 x 5.8 cm. Urinary bladder: Normal mucosa. 328 mL prevoid volume. IMPRESSION: 1. No hydronephrosis 2. Stable left and right renal cysts.
== END 2019-09-14 10:11 | disposition home or self-care (01) ==
LOC: BICULT 10:10
PROVIDERS: ATTEND Family Medicine
DX: N28.1 Cyst of kidney, acquired (principal)
CPT/HCPCS: 76770

== ENCOUNTER → 2020-04-12 | Day surgery (SDC) | payer MEDICARE, BC ==
[2020-04-11 12:55] VITALS: BMI 28.7
[~2020-04-12] MED LIST: Lidocaine 1% (PF) 30 ML VIAL ONE
[2020-04-12 07:52] LABS: Cardiac Risk 8.9 (Less than 4.5)
[2020-04-12 09:06] LABS: Anion Gap 16 mmol/L (10-20); BUN (Urea Nitrogen) 36 mg/dL (8.4-25.7); Calc. Creatinine Clearance 37 mL/min (70-130); Calcium 8.6 mg/dL (7.8-10.44); Carbon Dioxide 17 mmol/L (23-31); Chloride 110 mmol/L (98-107); Glucose 104 mg/dL (83-110); Potassium 4.5 mmol/L (3.5-5.1); Sodium 138 mmol/L (136-145)
== END ==
LOC: CCL 06:19
PROVIDERS: ATTEND Internal Medicine Cardiovascular Disease
DX: I35.0 Nonrheumatic aortic (valve) stenosis (principal); Z53.09 Procedure and treatment not carried out because of other contraindication; Z79.4 Long term (current) use of insulin; Z79.899 Other long term (current) drug therapy; Z88.2 Allergy status to sulfonamides; Z88.6 Allergy status to analgesic agent; Z88.8 Allergy status to other drugs, medicaments and biological substances
CPT/HCPCS: 36415; 80048; 80061; J1644; J2001

== ENCOUNTER 2020-07-12 10:52 | Outpatient (CLI) | payer MEDICARE, BC ==
[2020-04-07 14:17] LABS: Hemoglobin 13.4 g/dL (14.0-18.0); Mean Corpuscular HGB CONC 32.8 G/DL (32.0-36.0); Mean Corpuscular Hemoglobin 29.6 PG (27.0-33.0); Mean Corpuscular Volume 90.5 fl (80.0-100.0); Mean Platelet Volume 11.8 fl (7.4-10.4); Platelet Count 177 10x3/uL (130-400); RBC Distribution Width 12.9 % (11.5-14.5); Red Blood Cell (RBC) Count 4.52 10x6/uL (4.40-5.80); White Blood Cell (WBC) Count 6.8 10x3/uL (4.5-11.0)
[2020-04-07 14:21] LABS: ALT (SGPT) 18 U/L (8-55); AST (SGOT) 20 U/L (5-34); Albumin 3.8 g/dL (3.4-4.8); Alkaline Phosphatase 737 U/L (40-110); Anion Gap 16 mmol/L (10-20); BUN (Urea Nitrogen) 35 mg/dL (8.4-25.7); Bilirubin, Total 0.5 mg/dL (0.2-1.2); Calc. Creatinine Clearance 0 mL/min (70-130); Calcium 9.1 mg/dL (7.8-10.44); Carbon Dioxide 18 mmol/L (23-31); Chloride 109 mmol/L (98-107); Globulin 3.1 g/dL (2.4-3.5); Glucose 196 mg/dL (83-110); Potassium 5.1 mmol/L (3.5-5.1); Protein, Total 6.9 g/dL (5.8-8.1); Sodium 138 mmol/L (136-145)
[2020-04-07 23:20] LABS: SARS-CoV-2 PCR by NAA Not Detected (NotDetected)
[2020-07-12 13:39] LABS: #Eosinphils 0.2 10x3/uL (0.0-0.5); #Monocytes 0.5 10x3/uL (0.0-1.1); #Neutrophils 4.7 10x3/uL (1.5-8.4); %Basophils 0.6 % (0.0-2.0); %Eosinophils 2.7 % (0.0-6.0); %Lymphocytes 18.8 % (18.0-47.0); %Monocytes 6.8 % (0.0-10.0); %Neutrophils 70.8 % (40.0-75.0); Hemoglobin 13.2 g/dL (13.5-17.5); Mean Corpuscular HGB CONC 32.9 g/dL (32.0-36.0); Mean Corpuscular Hemoglobin 30.1 pg (27.0-33.0); Mean Corpuscular Volume 91.3 fl (81.2-95.1); Mean Platelet Volume 12.3 fl (7.4-10.4); Platelet Count 169 10x3/uL (150-450); RBC Distribution Width 13.2 % (11.5-14.5); Red Blood Cell (RBC) Count 4.39 10x6/uL (4.32-5.72); White Blood Cell (WBC) Count 6.6 10x3/uL (3.5-10.5)
[2020-07-12 14:49] LABS: ALT (SGPT) 16 U/L (8-55); AST (SGOT) 18 U/L (5-34); Albumin 3.7 g/dL (3.4-4.8); Alkaline Phosphatase 729 U/L (40-110); Anion Gap 14 mmol/L (10-20); BUN (Urea Nitrogen) 44 mg/dL (8.4-25.7); Bilirubin, Total 0.6 mg/dL (0.2-1.2); Calc. Creatinine Clearance 0 mL/min (70-130); Calcium 9.4 mg/dL (7.8-10.44); Carbon Dioxide 20 mmol/L (23-31); Cardiac Risk 8.5 (Less than 4.5); Chloride 110 mmol/L (98-107); Cholesterol 265 mg/dl (< 200 Desired); Glucose 163 mg/dL (83-110); HDL Cholesterol 31 mg/dL (>60 Neg Risk); Potassium 5.5 mmol/L (3.5-5.1); Protein, Total 6.7 g/dL (5.8-8.1); Sodium 138 mmol/L (136-145); Triglycerides 474 mg/dL (Less than 150)
[2020-07-12 21:22] LABS: SARS-CoV-2 PCR by NAA Not Detected (NotDetected)
== END 2020-07-12 10:53 | disposition home or self-care (01) ==
LOC: LABBT 10:52
PROVIDERS: ATTEND Internal Medicine Cardiovascular Disease
DX: Z01.818 Encounter for other preprocedural examination (principal); I35.9 Nonrheumatic aortic valve disorder, unspecified; Z20.822 Contact with and (suspected) exposure to COVID-19
CPT/HCPCS: 80053 ×2; 80061; 85025; 85027; 93005; U0003 ×2; U0005 ×2; 87635; 93010

== ENCOUNTER 2020-07-13 18:37 | Inpatient (IN) | payer MEDICARE, BC ==
[2020-07-13 19:38] VITALS: BMI 26.1
[2020-07-13] MEDS ORDERED: Sodium Chloride 0.9% 1,000 ML IV SCH ×2 (20:15→23:59)
[2020-07-14] MEDS ORDERED: Furosemide 20 MG TAB PO SCH (04:15)
[2020-07-14] MEDS ORDERED: Atenolol 25 MG TAB PO SCH (04:15)
[2020-07-14] MEDS ORDERED: Gabapentin 300 MG CAP PO SCH ×2 (04:15→21:00)
[2020-07-14] MEDS ORDERED: Aspirin 81 mg Enteric Coated Tablet PO SCH (04:15)
[2020-07-14] MEDS ORDERED: Lantus 1000 UNITS/10 ML VIAL SC SCH (04:15)
[2020-07-14] MEDS ORDERED: Rosuvastatin 20 MG TAB PO SCH (04:15)
[2020-07-14] MEDS ORDERED: Donepezil HCl 10 MG TAB PO SCH (04:15)
[2020-07-14] MEDS ORDERED: Amlodipine 5 MG TAB PO SCH (04:15)
[2020-07-14 05:05] LABS: #Basophils 0.1 thou/uL (0.0-0.2); #Eosinphils 0.3 thou/uL (0.0-0.7); #Lymphocytes 1.3 thou/uL (1.20-3.40); #Monocytes 0.7 thou/uL (0.11-0.59); #Neutrophils 5.3 thou/uL (1.40-6.50); %Basophils 0.9 % (0.0-1.0); %Eosinophils 3.4 % (0.0-10.0); %Lymphocytes 17.6 % (21.0-51.0); %Monocytes 8.9 % (0.0-10.0); %Neutrophils 69.3 % (42.0-75.0); Hemoglobin 12.7 g/dL (14.0-18.0); Mean Corpuscular HGB CONC 33.7 g/dL (32.0-36.0); Mean Corpuscular Hemoglobin 30.7 pg (27.0-31.0); Mean Corpuscular Volume 91.1 fL (78.0-98.0); Mean Platelet Volume 9.4 fL (7.4-10.4); Platelet Count 145 thou/uL (130-400); RBC Distribution Width 11.9 % (11.5-14.5); Red Blood Cell (RBC) Count 4.15 mill/uL (4.70-6.10); White Blood Cell (WBC) Count 7.6 thou/uL (4.8-10.8)
[2020-07-14 05:30] LABS: ALT (SGPT) 10 U/L (8-55); AST (SGOT) 16 U/L (5-34); Albumin 3.3 g/dL (3.4-4.8); Alkaline Phosphatase 718 U/L (40-110); Anion Gap 16 mmol/L (10-20); BUN (Urea Nitrogen) 50 mg/dL (8.4-25.7); Bilirubin, Total 0.3 mg/dL (0.2-1.2); Calc. Creatinine Clearance 30 mL/min (70-130); Calcium 9.1 mg/dL (7.8-10.44); Carbon Dioxide 14 mmol/L (23-31); Cardiac Risk 7.8 (Less than 4.5); Chloride 111 mmol/L (98-107); Cholesterol 258 mg/dl (< 200 Desired); Globulin 3.4 g/dL (2.4-3.5); Glucose 175 mg/dL (83-110); HDL Cholesterol 33 mg/dL (>60 Neg Risk); Potassium 5.3 mmol/L (3.5-5.1); Protein, Total 6.7 g/dL (5.8-8.1); Sodium 136 mmol/L (136-145); Triglycerides 776 mg/dL (Less than 150)
[2020-07-14 06:16] LABS: LDL Cholesterol, Calculated 70 mg/dL
[2020-07-14] MEDS ORDERED: Lidocaine 1% (PF) 30 ML VIAL ONE (07:33)
[2020-07-14] MEDS ORDERED: metFORMIN 500 MG TAB PO SCH (08:00)
[2020-07-14] MEDS ORDERED: Fentanyl 100 MCG/2 ML VIAL ONE (08:19)
[2020-07-14] MEDS ORDERED: Midazolam HCl 2 mg/2 ml Vial ONE (08:19)
[2020-07-14] MEDS ORDERED: Heparin 10,000 UNITS/ 10 ML VIAL ONE (08:33)
[2020-07-14] MEDS ORDERED: Sodium Chloride 0.9% 200 ML IV PRN (09:21)
[2020-07-14] MEDS ORDERED: Nitroglycerin 0.4 MG TAB (25 Tab Bottle) SL PRN (09:21)
[2020-07-14] MEDS ORDERED: Sodium Chloride 0.9% 1,000 ML IV SCH (09:30)
[2020-07-14] MEDS ORDERED: Iopamidol 370 76% 100 ML VIAL ONE (10:51)
[2020-07-14] MEDS ORDERED: hydrALAZINE 20 MG/ML VIAL SLOW IVP SCH (13:15)
[2020-07-14] MEDS: Sodium Chloride 0.9% 1,000 ML IV SCH (17:36)
[2020-07-14] MEDS: Gabapentin 300 MG CAP PO SCH (21:03)
[2020-07-14] MEDS: Lantus 1000 UNITS/10 ML VIAL SC SCH ×2 (21:04→21:15)
[2020-07-15 04:58] LABS: #Eosinphils 0.2 thou/uL (0.0-0.7); #Lymphocytes 1.1 thou/uL (1.20-3.40); #Monocytes 0.5 thou/uL (0.11-0.59); #Neutrophils 4.6 thou/uL (1.40-6.50); %Basophils 0.8 % (0.0-1.0); %Lymphocytes 17.2 % (21.0-51.0); %Monocytes 7.8 % (0.0-10.0); %Neutrophils 71.2 % (42.0-75.0); Hemoglobin 12.5 g/dL (14.0-18.0); Mean Corpuscular Hemoglobin 29.2 pg (27.0-31.0); Mean Corpuscular Volume 91.4 fL (78.0-98.0); Mean Platelet Volume 9.1 fL (7.4-10.4); Platelet Count 138 thou/uL (130-400); RBC Distribution Width 11.8 % (11.5-14.5); Red Blood Cell (RBC) Count 4.29 mill/uL (4.70-6.10); White Blood Cell (WBC) Count 6.4 thou/uL (4.8-10.8)
[2020-07-15 05:17] LABS: Anion Gap 12 mmol/L (10-20); BUN (Urea Nitrogen) 45 mg/dL (8.4-25.7); Calc. Creatinine Clearance 34 mL/min (70-130); Calcium 8.7 mg/dL (7.8-10.44); Carbon Dioxide 16 mmol/L (23-31); Chloride 113 mmol/L (98-107); Glucose 140 mg/dL (83-110); Potassium 5.3 mmol/L (3.5-5.1); Sodium 136 mmol/L (136-145)
[2020-07-15] MEDS: Sodium Chloride 0.9% 1,000 ML IV SCH ×2 (05:43→14:56)
[2020-07-15] MEDS: Rosuvastatin 20 MG TAB PO SCH (07:20)
[2020-07-15] MEDS: Aspirin 81 mg Enteric Coated Tablet PO SCH (07:20)
[2020-07-15] MEDS: Atenolol 25 MG TAB PO SCH (07:20)
[2020-07-15] MEDS: Donepezil HCl 10 MG TAB PO SCH (07:21)
[2020-07-15] MEDS: Amlodipine 5 MG TAB PO SCH (07:21)
[2020-07-15] MEDS ORDERED: Furosemide 20 MG TAB PO SCH (09:00)
[2020-07-15] MEDS: Gabapentin 300 MG CAP PO SCH (20:45)
[2020-07-15] MEDS: Lantus 1000 UNITS/10 ML VIAL SC SCH (20:55)
[2020-07-16] MEDS: Sodium Chloride 0.9% 1,000 ML IV SCH ×3 (01:02→08:42)
[2020-07-16 05:34] LABS: Anion Gap 14 mmol/L (10-20); BUN (Urea Nitrogen) 39 mg/dL (8.4-25.7); Calc. Creatinine Clearance 39 mL/min (70-130); Calcium 8.3 mg/dL (7.8-10.44); Carbon Dioxide 12 mmol/L (23-31); Chloride 115 mmol/L (98-107); Glucose 140 mg/dL (83-110); Potassium 4.7 mmol/L (3.5-5.1); Sodium 136 mmol/L (136-145)
[2020-07-16] MEDS: Donepezil HCl 10 MG TAB PO SCH (08:39)
[2020-07-16] MEDS: Atenolol 25 MG TAB PO SCH (08:40)
[2020-07-16] MEDS: Amlodipine 5 MG TAB PO SCH (08:41)
[2020-07-16] MEDS: Rosuvastatin 20 MG TAB PO SCH (08:41)
[2020-07-16] MEDS: Aspirin 81 mg Enteric Coated Tablet PO SCH (08:41)
[2020-07-16 13:07] VITALS: BP 140/64; TEMP 97.8
== END 2020-07-16 16:37 | disposition home or self-care (01) | DRG 287 ==
LOC: CCL 18:37 → 2SW 19:09 → INTOOBSV 19:39 → OBSVTOIN 19:39
PROVIDERS: ADMIT Internal Medicine Cardiovascular Disease; ATTEND Internal Medicine Cardiovascular Disease
PROC: 4A023N8 Measurement of Cardiac Sampling and Pressure, Bilateral, Percutaneous Approach (ICD-10-PCS; principal; 2020-07-14)
PROC: B2111ZZ Fluoroscopy of Multiple Coronary Arteries using Low Osmolar Contrast (ICD-10-PCS; 2020-07-14)
PROC: B2161ZZ Fluoroscopy of Right and Left Heart using Low Osmolar Contrast (ICD-10-PCS; 2020-07-14)
DX: I35.0 Nonrheumatic aortic (valve) stenosis (principal); N17.9 Acute kidney failure, unspecified; N18.4 Chronic kidney disease, stage 4 (severe); E87.2 Acidosis; E78.5 Hyperlipidemia, unspecified; I25.10 Atherosclerotic heart disease of native coronary artery without angina pectoris; I13.10 Hypertensive heart and chronic kidney disease without heart failure, with stage 1 through stage 4 chronic kidney disease, or unspecified chronic kidney disease; G89.29 Other chronic pain; M54.9 Dorsalgia, unspecified; E11.22 Type 2 diabetes mellitus with diabetic chronic kidney disease; E87.5 Hyperkalemia; E88.09 Other disorders of plasma-protein metabolism, not elsewhere classified; D63.1 Anemia in chronic kidney disease; Z88.6 Allergy status to analgesic agent; Z88.2 Allergy status to sulfonamides; Z88.8 Allergy status to other drugs, medicaments and biological substances; Z90.49 Acquired absence of other specified parts of digestive tract; Z87.891 Personal history of nicotine dependence; Z87.820 Personal history of traumatic brain injury; Z79.899 Other long term (current) drug therapy; Z79.4 Long term (current) use of insulin; Z79.82 Long term (current) use of aspirin
CPT/HCPCS: 36415; 36416; 76770; 80048; 80053; 80061; 85025; 85027; 85347; 87635; 93005; 93010; 93456; 96374; 99152; 99153; G0378; J0360; J1644; J1815; J2001; J2250; J3010; Q9967; U0003; U0005